=== PATIENT | male | born 1950 | race Caucasian/White ===

== ENCOUNTER 2018-07-22 11:39 | Observation (INO) ==
[2018-07-22] MEDS: D5 1/2 NS 1,000 ML IV SCH (14:32)
[2018-07-22] MEDS ORDERED: DIPRIVAN 1% ONE ×2 (16:56→17:47)
[2018-07-22] MEDS ORDERED: XYLOCAINE-MPF 2% ONE (16:56)
[2018-07-22] MEDS ORDERED: ROBINUL ONE (16:56)
[2018-07-22] MEDS ORDERED: VERSED ONE (17:12)
[2018-07-22] MEDS ORDERED: EPINEPHRINE SYRINGE ONE (17:29)
--- NOTE | 2018-07-22 19:12 | OPERATIVE NOTE ---
PROCEDURE DATE: 07/22/2018 PROCEDURE: Colonoscopy and hemorrhage control. PREOPERATIVE DIAGNOSIS: Lower gastrointestinal bleed. POSTOPERATIVE DIAGNOSIS: Bleeding ulcer, ascending colon, treated. HISTORY: This is a 67-year-old gentleman who had a colonoscopy and polypectomy 6 days ago. He has been on aspirin and Effient, which he resumed. This morning, he called in because he was having some bright red blood per rectum. He had multiple episodes of bright red blood per rectum and he was passing clots as well. He was admitted after he was found to have significant blood loss. Hemoglobin and hematocrit had dropped slightly. He was prepared for urgent colonoscopy and hemorrhage control. PROCEDURE: Informed consent was obtained from the patient. The procedure, risks, benefits, and alternatives were explained in layman's terms. He understood. All his pertinent questions were answered. The patient was brought to the endoscopy unit and was premedicated as per Anesthesia after adequate sedation, while he was lying in left lateral position. The digital rectal exam was performed which revealed bright red blood on the finger stalk. The scope was then gently introduced into the rectum, and I immediately saw altered blood in the rectum with some clots. However, I was able to pass the scope with vigorous irrigation and suctioning. I was able to advance the scope all the way up to the cecum. The cecum was identified by ileocecal valve and appendiceal orifice. About 10 cm proximal to the ascending colon, there was a post polypectomy ulcer seen, and there was spurting of blood seen at the base of the ulcer. I used a sclerotherapy needle and injected 1:10,000 epinephrine in aliquots of 0.5 mL. About 3 to 4 mL were injected in and around the area. After that, I placed 2 Endoclips on the visible vessel with success and the bleeding ceased. The scope was then withdrawn. The patient tolerated the procedure well. No complication was noted. On my withdrawal though, I did see other post polypectomy ulcers as well, but they were not actively bleeding. The patient was then transferred to the recovery area in a stable condition. IMPRESSION: Ulcer, ascending colon, with visible bleeding vessel, treated with epinephrine and Endoclips. Bleeding stopped. RECOMMENDATIONS: I would hold his Effient and aspirin for at least a day. Resume his aspirin, but holding the Effient. In the meantime, will recheck his hemoglobin and hematocrit and transfuse if necessary. Depending on his progress, he will be discharged tomorrow to be followed up at the office. I have explained my findings and plan to the patient and his , who was present at the bedside. She understood and all the pertinent questions were answered. cc: Luis Berry MD
[2018-07-22 19:30] LABS: HEMATOCRIT 34.7 % (42.0-52.0); HEMOGLOBIN 11.6 g/dL (14.0-18.0)
[2018-07-23] MEDS ORDERED: TYLENOL PO ONE (00:47)
[2018-07-23] MEDS: D5 1/2 NS 1,000 ML IV SCH (03:02)
[2018-07-23 06:39] LABS: HEMATOCRIT 33.2 % (42.0-52.0)
[2018-07-23] MEDS ORDERED: PERIDEX MT SCH (09:00)
[2018-07-23] MEDS ORDERED: GOLYTELY PO ONE (09:30)
[2018-07-23 09:38] LABS: HEMOGLOBIN 12.3 g/dL (14.0-18.0)
[2018-07-23 11:17] VITALS: BP 138/92
[2018-07-23] MEDS ORDERED: DIPRIVAN 1% ONE ×2 (12:02→12:13)
--- NOTE | 2018-07-23 12:23 | GASTROENTEROLOGY PROGRESS NOTE ---
DATE: 07/23/2018 SUBJECTIVE: Patient had a large bloody stool this morning. Patient had previously had a colonoscopy 7 days ago. He had restarted his aspirin and Effient and they called our office yesterday morning stating he was having bright red blood per rectum with clots. A colonoscopy was done yesterday that showed an ulcer in the ascending colon, with visible bleeding vessel that was treated with epinephrine and Endo clips. At the time of the procedure, the bleeding had stopped. The nurse called Dr. Berry this morning stating patient had large amount of bright red rectal bleeding this morning. The patient denies dizziness or lightheadedness but does report some weakness. OBJECTIVE: Vital Signs: Temperature 98.1 degrees, pulse 72, respirations 20, blood pressure 109/71. General: Patient is awake and alert in no acute distress. LABORATORY DATA: Hemoglobin and hematocrit this morning was 12.3 and 37.0. ASSESSMENT AND PLAN: 1. Recent colonoscopy with polypectomy. 2. Anticoagulation with aspirin, and Effient currently on hold. We will repeat colonoscopy after a 1 L GoLYTELY prep. Further plans will be made according to findings. I have discussed the procedure along with benefits and risks with the patient, and he wishes to proceed. 3. I have discussed this case with Dr. Berry. We will also type and screen the patient in case he needs packed red blood cell transfusion. Dictated by SILVA Coleman for Luis Berry MD cc: SILVA Simmons MD [facility]
[2018-07-23] MEDS ORDERED: VERSED ONE (12:26)
--- NOTE | 2018-07-28 19:01 | OPERATIVE NOTE ---
PROCEDURE DATE: 07/23/2018 PROCEDURE: Colonoscopy and hemorrhage control. MEDICATIONS: MAC as per Anesthesia. EQUIPMENT: Pentax colonoscope. HISTORY: This is a 67-year-old gentleman who has had postpolypectomy bleed and had a colonoscopy and hemorrhage control yesterday. He started having some bright red blood per rectum this morning. Colonoscopy was repeated to re-examine the area where he may have bled and treat accordingly. DESCRIPTION OF PROCEDURE: Informed consent was obtained from the patient. The procedure, risks, benefits and alternatives were explained in layman's terms. He understood. All his pertinent questions were answered. The patient was brought to the endoscopy unit and was premedicated as per Anesthesia. After adequate sedation and while he was lying in left lateral position, the digital rectal exam was performed, which showed some bright red blood on the fingertip. The scope was then gently introduced into the rectum and I saw some altered blood in his rectum, which was suctioned out. I was able to advance the scope all the way up to the cecum. The cecum was identified by the ileocecal valve and the appendiceal orifice. One of the Endo Clips that was placed earlier had come off and it was lying in the cecum. The ulcer which was noted and treated yesterday in the ascending colon did not show any evidence of active bleeding at this moment. The ulcer, however, was present there. Since he has had another episode this morning, I went ahead and placed another clip at the site of his ulcer, and no further bleeding was noted. The scope was withdrawn. The patient tolerated the procedure well. No complications noted. The patient was then transferred to the recovery area in a stable condition. IMPRESSION: 1. Lower gastrointestinal bleed, resolved. 2. Ulcer in colon, treated. RECOMMENDATIONS: I would continue to observe his hemoglobin and hematocrit, and transfuse if necessary. In the meantime I would advance his diet if he is stable. Discharge, to be followed up at the office. I have explained the findings and plan to the patient's . All the pertinent questions were answered. cc: Luis Berry MD
== END 2018-07-23 15:30 | disposition home or self-care (01) ==
LOC: OPS 11:39 → 4N 11:39 → EDSTATUS 17:00
PROVIDERS: ADMIT Internal Medicine Gastroenterology; ATTEND Internal Medicine Gastroenterology
CPT/HCPCS: 85014; 85018; 85025; 86850; 86900; 86901; A9270; J0171; J2250